=== PATIENT | female | born 1930 | race Caucasian/White ===

== ENCOUNTER 2017-09-30 10:25 | Emergency (ER) | payer MEDICARE ==
[2017-09-30 12:48] LABS: #Eosinphils 0.1 thou/uL (0.0-0.7); #Lymphocytes 1.1 thou/uL (1.20-3.40); #Monocytes 0.6 thou/uL (0.11-0.59); #Neutrophils 3.6 thou/uL (1.40-6.50); %Basophils 0.4 % (0.0-1.0); %Eosinophils 2.6 % (0.0-10.0); %Lymphocytes 20.9 % (21.0-51.0); %Monocytes 10.8 % (0.0-10.0); Hematocrit 42.8 % (36.0-47.0); Mean Platelet Volume 8.2 fL (7.4-10.4); Red Blood Cell (RBC) Count 4.59 mill/uL (4.20-5.40); White Blood Cell (WBC) Count 5.4 thou/uL (4.8-10.8)
--- NOTE | 2017-09-30 12:48 | RAD ---
TWO VIEWS OF THE CHEST: 09/30/2017 COMPARISON: 09/24/2017 HISTORY: Community-acquired pneumonia of the left lower lobe, hypotension. FINDINGS: There is a prominent hiatal hernia noted within air fluid level. There are increased linear intersti tial densities, stable. There is apical pleural thickening, right greater than left, stable as well. There is stable promine nce of the cardiac silhouette. There is atherosclerotic calcification of the abdominal aorta and the region of the aortic arch. There is a stable small pleural effusion on the left. There is mild patchy opacity in the left base which could signify infiltrate or volume loss. There has been no significant interval change when co mpared to the 09/24/2017 exam. IMPRESSION: Stable 2-view examination of the chest. POS: DANIEL
[2017-09-30 13:00] LABS: Lactic Acid - Sepsis 1.2 mmol/L (0.5-2.2)
[2017-09-30 13:12] LABS: ALT (SGPT) 10 U/L (8-55); AST (SGOT) 22 U/L (5-34); Alkaline Phosphatase 52 U/L (40-150); Anion Gap 14 mmol/L (10-20); BUN (Urea Nitrogen) 17 mg/dL (9.8-20.1); Bilirubin, Total 0.4 mg/dL (0.2-1.2); Calc. Creatinine Clearance 0 mL/min (70-130); Calcium 8.8 mg/dL (7.8-10.44); Carbon Dioxide 23 mmol/L (23-31); Chloride 106 mmol/L (98-107); Estimated GFR-MDRD 50; Globulin 3.1 g/dL (2.4-3.5); Protein, Total 6.3 g/dL (6.0-8.3)
[2017-09-30] MEDS ORDERED: Albuterol Sulfate 2.5 mg/3 ml Neb ONE (14:19)
--- NOTE | 2017-10-30 14:38 | EKG ---
Test Reason : HYPOTENSION Blood Pressure : / mmHG Vent. Rate : 054 BPM Atrial Rate : 054 BPM P-R Int : 138 ms QRS Dur : 116 ms QT Int : 480 ms P-R-T Axes : 034 017 -11 degrees QTc Int : 455 ms Sinus bradycardia Possible Left atrial enlargement Cannot rule out Anterior infarct , age undetermined T wave abnormality, consider inferior ischemia Abnormal ECG Confirmed by SHARON VERGARA, DAMASO ([id number]), film or videotape editor GALLO MARQUES ([id number]) on 10/30/2017 2:38:11 PM Referred By: ARYAN Confirmed By:DAMASO HERRERA MD
== END 2017-09-30 15:11 | disposition home or self-care (01) ==
LOC: ERS 10:25
DX: I95.9 Hypotension, unspecified (principal); J90 Pleural effusion, not elsewhere classified; I48.91 Unspecified atrial fibrillation; E03.9 Hypothyroidism, unspecified; I10 Essential (primary) hypertension; Z79.899 Other long term (current) drug therapy
CPT/HCPCS: 36415; 71020; 80053; 83605; 85025; 87040; 93005; 94640; J7611